=== PATIENT | female | born 1995 | race Caucasian/White ===

== ENCOUNTER 2018-08-03 08:15 | Inpatient (IN) | payer BC, OTHER ==
[~2018-08-03] VITALS: Ht 162.6 cm; Wt 43.1 kg
--- NOTE | 2018-08-03 10:38 | NUR ---
PREADMISSION Pt 23 y/o female received in intake office, came from home ( lives with 2 roommates). JF=292/62 P=103 R=16 T=98.0 O2=98%@RA. Pt appears intoxicated, observed nodding off at times during assessment. Pt alert and oriented to name, place, and time. Perrla. Skin warm and dry to touch. Cows ciwa deferred as pt denies symptoms besides lower back aches 5/10, and appears intoxicated at the moment. Pt presents disheveled with hair uncombed. Dirt under fingernails of both hands noted. Poor eye contact, appears guarded on approach. Explained unit rules with acknowledgment.
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
[2018-08-03] MEDS ORDERED: CLONIDINE HCL 0.1 MG TABLET PO PRN (11:30)
[2018-08-03] MEDS ORDERED: MIRALAX 17 GM POWD.PACK PO PRN (11:30)
[2018-08-03] MEDS ORDERED: ONDANSETRON ODT 4 MG TAB.RAPDIS SL PRN (11:30)
[2018-08-03] MEDS ORDERED: MAG HYDROX/AL HYDROX/SIMETH 30 ML LIQUID UDC PO PRN (11:30)
[2018-08-03] MEDS ORDERED: LOPERAMIDE HCL 2 MG CAPSULE PO PRN ×2 (11:30)
[2018-08-03] MEDS ORDERED: HYDROXYZINE PAMOATE 25 MG CAPSULE PO PRN (11:30)
[2018-08-03] MEDS ORDERED: diphenhydrAMINE 50 MG CAPSULE PO PRN (11:30)
[2018-08-03] MEDS ORDERED: ONDANSETRON 4 MG/2 ML VIAL IM PRN (11:30)
[2018-08-03] MEDS ORDERED: MAGNESIUM HYDROXIDE 30 ML LIQUID UDC PO PRN (11:30)
[2018-08-03] MEDS ORDERED: LORAZEPAM 1 MG TABLET PO PRN (11:30)
[2018-08-03 12:00] VITALS: BP 118/70
--- NOTE | 2018-08-03 12:00 | NUR ---
COWS CIWA ASSESSMENT cows=9 ciwa=6. Anxious and restless. Pressured speech. Bilateral hand tremors. Complaints of lower back aches 01/20. Fidgety. Complaints of generalized discomfort.
--- NOTE | 2018-08-03 12:00 | NUR ---
MD COMMUNICATION MD made aware of negative opiate UDS result and states it is okay to start subutex taper as ordered.
[2018-08-03 12:18] LABS: *URINE HCG, QUAL NEGATIVE (NEGATIVE)
[2018-08-03 12:25] LABS: *AMPHETAMINE, URINE NEGATIVE (NEGATIVE); *BARBITURATE, URINE NEGATIVE (NEGATIVE); *CANNABINOID, URINE POSITIVE (NEGATIVE); *COCCAINE, URINE POSITIVE (NEGATIVE); *OPIATE, URINE NEGATIVE (NEGATIVE); *PHENCYCLIDINE SCREEN,URINE NEGATIVE (NEGATIVE)
[2018-08-03] MEDS: METHOCARBAMOL 750 MG TABLET PO PRN ×2 (12:29→20:01)
[2018-08-03 12:33] LABS: BASOPHILS % (AUTO) 0.7 % (0.0-2.0); EOSINOPHILS % (AUTO) 0.3 % (0.0-7.0); HEMOGLOBIN 12.8 g/dL (10.9-14.3); LYMPHOCYTES # (AUTO) 1.1 K/uL (20.0-40.0); LYMPHOCYTES % (AUTO) 18.7 % (20.5-51.5); MEAN CORPUSCULAR HEMOGLOBIN 33.8 uug (24.7-32.8); MEAN CORPUSCULAR HGB CONC 35 g/dL (32.3-35.6); MEAN CORPUSCULAR VOLUME 97.9 fL (75.5-95.3); MONOCYTES # (AUTO) 0.4 K/uL (2.0-10.0); MONOCYTES % (AUTO) 7.2 % (0.0-11.0); NEUTROPHILS # (AUTO) 4.4 K/uL (1.8-8.9); NEUTROPHILS % (AUTO) 73.1 % (38.5-71.5); PLATELET COUNT (AUTO) 251 K/uL (179-408); RED BLOOD CELL COUNT(AUTO) 3.78 MIL/uL (3.63-4.92)
--- NOTE | 2018-08-03 12:40 | NUR ---
PRN ATIVAN ROBAXIN Pt anxious and restless. Fidgety. Frequent position change. Pressured speech. Irritable. Ativan 2mg po prn per MD order given. Complaints of back aches 03/22. Robaxin po prn per MD order given.
[2018-08-03 12:44] LABS: ETHANOL < 3 MG/DL (0-0)
[2018-08-03 12:48] LABS: ALANINE AMINOTRANSFERASE 24 U/L (14-59); ALKALINE PHOSPHATASE 68 U/L (50-136); ASPARTATE AMINOTRANSFERASE 21 U/L (15-37); BILIRUBIN,TOTAL 0.7 mg/dL (0.2-1.0); CARBON DIOXIDE 27 mmol/L (21-32); CHLORIDE 103 mmol/L (98-107); CREATININE 0.9 mg/dL (0.6-1.3); GLUCOSE 87 mg/dL (74-106); MAGNESIUM 2.1 mg/dL (1.8-2.4); POTASSIUM 3.2 mmol/L (3.5-5.1); TOTAL PROTEIN, SERUM 8.4 g/dL (6.4-8.2); UREA NITROGEN, BLOOD 7 mg/dL (7-18)
[2018-08-03 12:58] LABS: THYROID STIMULATING HORMONE 0.123 mIU/mL (0.358-3.740)
--- NOTE | 2018-08-03 13:40 | NUR ---
PRN ATIVAN ROBAXIN pt states aches 4/10. Pt states anxiety medication effective.
--- NOTE | 2018-08-03 13:40 | NUR ---
PRN ATIVAN ROBAXIN EVAL Pt states medications effective.
[2018-08-03] MEDS ORDERED: POTASSIUM CHLORIDE 20 MEQ TAB.PRT.SR PO ONE (14:00)
[2018-08-03 16:00] VITALS: BP 98/68
--- NOTE | 2018-08-03 16:00 | NUR ---
COWS CIWA ASSESSMENT cows12 ciwa=10. Anxious and restless. Perspiration on forehead noted. Fidgety. Lower back ache 8/10. Irritable and agitated. Stuffy nose. Pressured speech. Bilateral hand tremors noted.
[2018-08-03] MEDS: LORAZEPAM 1 MG TABLET PO SCH ×2 (17:31→20:01)
[2018-08-03] MEDS: BUPRENORPHINE HCL 2 MG TAB.SUBL SL SCH ×2 (17:31→20:01)
[2018-08-03] MEDS ORDERED: 4 DAY TAPER OF LORAZEPAM -SERENITY PROTOCOL PO PRN (18:00)
[2018-08-03] MEDS ORDERED: 4 DAY TAPER BUPRENORPHINE -SERENITY PROTOCOL SL SCH (18:00)
--- NOTE | 2018-08-03 19:09 | NUR ---
END OF SHIFT Pt 23 y/o female admitted for benzo and opiate withdrawal and cocaine and ketamine use. Pt alert and oriented to name, place, and time. Perrla. Skin warm and moist to touch. Respirations even and unlabored. Appear disheveled. hair uncombed. Dirt under fingernails noted. Encouraged to maintain hygiene. cows=12 ciwa=10 @1600. Anxious and restless. pressured speech. intermittent perspiration. Bilateral hand tremors. Body aches. isolative to room with no peer interaction. Did not attend group activity. Pt is on a 4 day subutex taper and is on day 1. pt is on a 4 day ativan taper and is on day1. Bed on lowest position with side rails up x2 up for safety. Call ligth within reach.
--- NOTE | 2018-08-03 19:31 | NUR ---
START OF SHIFT NOTE Rcvd report from outgoing nurse. Pt is a 23 y/o female A/O to person, place, time, and purpose. Pt was admitted for medically supervised withdrawal from Benzodiazepines and Opiates. Pt is on day 1 of a 4 day Subutex and Ativan taper. Pt has been presenting w/ depression, blunt affect, emotional labiality, drowsiness, sweats, chills, hot flashes, body aches, and unkempt and disheveled appearance. Pt rcvd PRN Ativan and Robaxin, both were noted effective by outgoing nurse. Last CIWA 10 and COWS 12 @ 1600. Call light is within reach. Pt will continue to be monitored and needs met.
[2018-08-03 20:00] VITALS: BP 110/58
--- NOTE | 2018-08-03 20:00 | NUR ---
CIWA AND COWS ASSESSMENT CIWA 10 and COWS 13. . Pt has been presenting w/ depression, blunt affect, emotional labiality, drowsiness, sweats, chills, hot flashes, body aches, and unkempt and disheveled appearance. V/S: T:98.7, P:84, RR:14, SPO2:98, BP:110/58.
--- NOTE | 2018-08-03 20:01 | NUR ---
PRN ROBAXIN AND ZOFRAN ADMINISTRATION Robaxin 750mg for body aches and back pain, and Zofran 4mg SL for nausea w/o emesis were given. Will reassess pt in 1 hr.
--- NOTE | 2018-08-03 21:01 | NUR ---
PRN ROBAXIN AND ZOFRAN REASSESSMENT Pt is in bed w/ her eyes closed. Pt's respirations are unlabored and even. Pt will continue to be monitored.
--- NOTE | 2018-08-03 21:55 | NUR ---
ENDORSEMENT Received patient lying in bed with eyes closed and even, unlabored respirations. HOB and bilateral side rails raised for safety. Patient is a 23 year old female admitted for medically supervised withdrawal from Benzos and opiates with secondary diagnoses of anxiety and depression. Patient appears disheveled and non-odorous. Will continue to monitor.
--- NOTE | 2018-08-04 | NUR ---
VITALS AND COWSCIWA DEFERRED Patient is noted lying in bed with eyes closed and even, unlabored respirations. HOB and bilateral side rails are raised. Vital signs refused and COWS/CIWA assessments deferred. Call light is within reach. Safety precautions maintained. Will continue to monitor.
--- NOTE | 2018-08-04 04:00 | NUR ---
VITALS AND COWS/CIWA DEFERRED Patient is noted lying in bed with eyes closed and even, unlabored respirations. HOB and bilateral side rails are raised. Vital signs refused and COWS/CIWA assessments deferred. Call light is within reach. Safety precautions maintained. Will continue to monitor.
--- NOTE | 2018-08-04 07:28 | NUR ---
END OF SHIFT Patient is noted lying in bed with eyes closed and even, unlabored respirations. Patient is a 23 year old female admitted for medically supervised withdrawal from Benzos and opiates with secondary diagnoses of anxiety and depression. Patient remained free of complications throughout the shift. Patient reported having body aches, back pain, and nausea for which Robaxin and Zofran were given with effectiveness. Patient was encouraged to increase activity levels and maintain adequate nutrition. Patient slept for about 8 hours during the night. Last COWS is 13 and last CIWA is 10. All safety measures are maintained. HOB and bilateral side rails raised. Call light is within reach. Endorsed to oncoming AM nurse.
[2018-08-04 08:00] VITALS: BP 104/60
--- NOTE | 2018-08-04 08:00 | NUR ---
START OF SHIFT COWS CIWA ASSESSMENT Pt 23 y/o female admitted for benzo and opiate withdrawal and cocaine and ketamine use. Pt received in room on bed with eyes closed, but arousable to name. Pt alert and oriented to name, place, and time. Perrla. Skin warm and moist to touch. Respirations even and unlabored. Appears disheveled. Empty drink bottles scattered throughout the room. Encouraged to maintain hygiene. Cows= ciwa= @0800. Anxious and restless. pressured speech. Intermittent perspiration/ chills. Bilateral hand tremors. Complaints of generalized body aches. Pt is on a 4 day subutex taper and is on day 2. pt is on a 4 day ativan taper and is on day 2. Bed on lowest position with side rails up x2 up for safety. Call light within reach. Addendum: 08/04/18 at 1602 by SOPHY DRAKE RN additional info cows=13 ciwa=10 @0800.
[2018-08-04] MEDS ORDERED: TUBERCULIN,PURIF.PROT.DERIV. 5 TU/0.1 ML TEST ID ONE (09:00)
[2018-08-04] MEDS ORDERED: BUPRENORPHINE HCL 2 MG TAB.SUBL SL SCH (09:00)
[2018-08-04] MEDS: LORAZEPAM 1 MG TABLET PO SCH ×3 (09:44→20:44)
[2018-08-04] MEDS: MULTIVITAMINS,THERAPEUTIC TABLET PO SCH (09:44)
[2018-08-04 10:06] LABS: HEPATITIS B SURFACE AG Negative (Negative)
[2018-08-04 12:00] VITALS: BP 110/64
--- NOTE | 2018-08-04 12:00 | NUR ---
COWS CIWA ASSESSMENT cows=13 ciwa=10. Bilateral hand tremors noted. Anxious and restless. Pressured speech. Complaints of body aches and generalized discomfort. Intermittent perspiration.
--- NOTE | 2018-08-04 12:00 | NUR ---
MD COMMUNICATION made aware of negative opiate UDS result and states it is okay to start subutex taper as ordered. Addendum: 08/04/18 at 1415 by SOPHY DRAKE RN incorrect date/time
[2018-08-04] MEDS: BUPRENORPHINE HCL 2 MG TAB.SUBL SL SCH ×2 (14:10→20:44)
[2018-08-04] MEDS: ACETAMINOPHEN 325 MG TABLET PO PRN (14:10)
[2018-08-04] MEDS: METHOCARBAMOL 750 MG TABLET PO PRN (14:11)
[2018-08-04] MEDS: IBUPROFEN 600 MG TABLET PO PRN (14:11)
--- NOTE | 2018-08-04 14:16 | NUR ---
PRN TYLENOL MOTRIN VISTARIL ROBAXIN Pt with complaints headache 4/10. Pt also with complaints of body aches 5/10. Robaxin po prn per MD order given. Tylenol po prn per MD order given. Motrin po prn per MD order given. Pt anxious and restless. Tearful. Vistaril po prn per MD order given.
--- NOTE | 2018-08-04 15:16 | NUR ---
PRN TYLENOL MOTRIN VISTARIL ROBAXIN EVAL Pt states medications effective.
[2018-08-04 16:00] VITALS: BP 102/64
--- NOTE | 2018-08-04 16:00 | NUR ---
COWS CIWA ASSESSMENT cows=13 ciwa=10. Anxious and restless. Tearful. Pressured speech. Bilateral hand tremors. Intermittent perspiration/ chills. Body aches. Complaints of generalized discomfort.
--- NOTE | 2018-08-04 18:19 | NUR ---
END OF SHIFT Pt 23 y/o female admitted for benzo and opiate withdrawal and cocaine and ketamine use. Pt alert and oriented to name, place, and time. Perrla. Skin warm and moist to touch. Respirations even and unlabored. Appears disheveled. Clothes scattered throughout the room. Encouraged to maintain hygiene. Cows= 13 ciwa=10 @1600. Anxious and restless. pressured speech. Intermittent perspiration/ chills. Bilateral hand tremors. Tearful episodes noted. Complaints of generalized lower back aches. Pt isolative to room with no peer interaction. Pt did not attend group activity. Pt is on a 4 day subutex taper and is on day 2. pt is on a 4 day ativan taper and is on day 2. Bed on lowest position with side rails up x2 up for safety. Call light within reach.
--- NOTE | 2018-08-04 19:30 | NUR ---
START OF SHIFT Received patient awake, alert, and oriented x4 watching television lying in bed. Patient is a 23 year old female admitted for medically supervised withdrawal from benzos and opiates with secondary diagnoses of anxiety and depression. Per endorsement patient was given Tylenol, motrin, Vistaril and Robaxin for headache, body aches, anxiety, and restlessness and PRN meds effective. Patient had a poor appetite during the day often only finishing about 25% of her meals. Patient was also noted to be tearful and crying in the AM shift regarding difficulties in her personal life. Upon assessment, patient reports having a headache at a 7 out of 10, but refuses pain medication stating I feel like Kadi been taking medications all day. I dont want t take anymore than I need to. Last COWS is 13 and CIWA is 10. All safety measures are in place. Call light is functional and within reach. Will continue to monitor.
--- NOTE | 2018-08-04 20:00 | NUR ---
COWS = 10, CIWA = 12 Patient is noted with a significant headache 7/10 pain, anxiety, fine tremors, and restlessness. Patient declines pain medication when offered stating I feel like Kadi been taking medications all day. Will continue to monitor closely.
[2018-08-04 20:14] VITALS: BP 96/43
--- NOTE | 2018-08-05 | NUR ---
VITALS AND COWS/CIWA DEFERRED Patient is noted lying in bed with eyes closed and even, unlabored respirations. HOB and bilateral side rails raised. Vital signs refused and COWS/CIWA assessment deferred. Call light functional and within reach. Bed is in a low and locked position. All safety measures in place. Will continue to monitor.
--- NOTE | 2018-08-05 07:15 | NUR ---
Start Of Shift Pt. is a 23 y/o female admitted for the medically managed withdrawal from Benzodiazepines, and Opiates. Pt. was also using ketamine, and cocaine concurrently with her other drug use. Pt. was placed on a 4 day Ativan, and 4 day Subutex tapers to manage withdrawal symptoms. Endorse from previous shift pt. presented with anxiety, depression and headache. Received pt. in room. Pt. in bed with eyes closed. No signs of distress noted. Safety measures in place. Will continue to monitor pt.'s behavior for safety.
--- NOTE | 2018-08-05 07:21 | NUR ---
END OF SHIFT Patient is a 23 year old female admitted for medically supervised withdrawal from benzos and opiates with secondary diagnoses of anxiety and depression. During the shift, patient reported a headache at a pain of 7 of 10, but declined pain meds upon offering. No PRNs were given during the NOC shift and patient stated I feel like Kadi been taking medications all day. I dont want to take anymore than I need to. Patient slept for about 9 hours in the night. Last COWS score is 10 and last CIWA is 12. All safety measures in place. Call light is functional and within reach. Bed is in a low locked position. Endorsed to oncoming AM nurse.
--- NOTE | 2018-08-05 08:00 | NUR ---
COWS/CIWA Assessment COWS of 9/CIWA of 9. Pt. in room presenting anxiety, restlessness, tremors, and diaphoresis. Will give medications as ordered. Will continue to monitor pt.'s behavior for safety and medication effectiveness.
[2018-08-05] MEDS: BUPRENORPHINE HCL 2 MG TAB.SUBL SL SCH ×3 (08:34→20:41)
[2018-08-05] MEDS: LORAZEPAM 1 MG TABLET PO SCH ×2 (08:34→20:41)
[2018-08-05] MEDS: MULTIVITAMINS,THERAPEUTIC TABLET PO SCH (08:34)
[2018-08-05 09:00] VITALS: BP 90/42
--- NOTE | 2018-08-05 10:18 | NUR ---
Therapist prompted client to attend group therapy sessions.
[2018-08-05 12:00] VITALS: BP 105/59
--- NOTE | 2018-08-05 12:00 | NUR ---
COWS/CIWA Assessment COWS of 9/CIWA of 9. Pt. in room presenting anxiety, restlessness, tremors, and diaphoresis. Pt. compliant with medication regiment and treatment plan. Will continue to monitor pt.'s behavior for safety and medication effectiveness.
[2018-08-05 16:00] VITALS: BP 106/62
[2018-08-05] MEDS: IBUPROFEN 600 MG TABLET PO PRN (17:31)
[2018-08-05] MEDS: ACETAMINOPHEN 325 MG TABLET PO PRN (17:31)
--- NOTE | 2018-08-05 17:31 | NUR ---
PRN Medication Pt. in room reporting a headache of 9/10. PRN Tylenol, and Motrin given at this time to manage withdrawal symptoms. Will continue to monitor pt.'s behavior for safety and medication effectiveness.
[2018-08-05] MEDS: METHOCARBAMOL 750 MG TABLET PO PRN (18:05)
--- NOTE | 2018-08-05 18:05 | NUR ---
PRN Medication/Re-Assessment Pt. in room and reports an improvement in her headache but that now her lower back hurts /10. PRN Robaxin given at this time to manage withdrawal symptoms. Will continue to monitor pt.'s behavior for safety and medication effectiveness.
--- NOTE | 2018-08-05 19:13 | NUR ---
End Of Shift Pt. is a 23 y/o female admitted for the medically managed withdrawal from Benzodiazepines, and Opiates. Pt. was also using ketamine, and cocaine concurrently with her other drug use. Pt. was placed on a 4 day Ativan, and 4 day Subutex tapers to manage withdrawal symptoms. Throughout shift pt. presented with anxiety, depression, low back pain and headache. Pt. compliant with medication regiment and treatment plan. Pt. able to verbalize needs. Safety measures in place. Will endorse pt.'s care to oncoming shift.
--- NOTE | 2018-08-05 19:43 | NUR ---
START OF SHIFT NOTE Rcvd report from outgoing nurse. Pt is a 23 y/o female A/O to person, place, time, and purpose. Pt was admitted for medically supervised withdrawal from ETOH, Benzodiazepines, and Opiates. Pt is on day 3 of a 4 day Subutex and Ativan taper. Pt has been presenting w/ body aches, abdominal cramping, chills, depressed and withdrawn mood, blunt affect, and anxiety. Pt rcvd PRN Robaxin, Motrin, and Tylenol and all were noted effective by outgoing nurse. Last CIWA 9 and COWS 9 @ 1600. Call light is within reach. Pt will continue to be monitored and needs met.
[2018-08-05 20:00] VITALS: BP 106/58
--- NOTE | 2018-08-05 20:00 | NUR ---
CIWA AND COWS ASSESSMENT CIWA 11 and COWS 10. Pt has been presenting w/ body aches, abdominal cramping, chills, depressed and withdrawn mood, blunt affect, and anxiety. V/S: T:98.1, P:81, RR:14, SPO2:98, BP:106/58.
[2018-08-05] MEDS: TRAZODONE 50 MG TABLET PO PRN (20:41)
--- NOTE | 2018-08-05 20:41 | NUR ---
PRN TRAZODONE ADMINISTRATION Trazodone 50mg given for insomnia. Will reassess pt in 1 hr.
--- NOTE | 2018-08-05 21:41 | NUR ---
PRN TRAZODONE REASSESSMENT Pt is in bed w/ her eyes closed. Pt states she is trying to fall asleep, but hasn't been able to. Pt will continue to attempt to sleep. Will continue to monitor pt.
--- NOTE | 2018-08-06 | NUR ---
CIWA AND COWS DEFERRED Pt is in bed w/ her eyes closed. Pt's respirations are unlabored and even.
--- NOTE | 2018-08-06 04:00 | NUR ---
CIWA AND COWS DEFERRED Pt is in bed w/ her eyes closed. Pt's respirations are unlabored and even.
--- NOTE | 2018-08-06 07:19 | NUR ---
END OF SHIFT NOTE Endorsed pt to oncoming nurse. Pt is a 23 y/o female A/O to person, place, time, and purpose. Pt was admitted for medically supervised withdrawal from ETOH, Benzodiazepines, and Opiates. Pt completed day 3 of a 4 day Subutex and Ativan taper. Pt continued presenting w/ body aches, abdominal cramping, chills, depressed and withdrawn mood, blunt affect, and anxiety. Pts chief complaint is low back pain that is achy and dull. Pt denies any S/I or H/I. PRN Trazodone was given and noted effective. Pts fluid intake was 355ml and she slept for 8hrs. Last CIWA 11 and COWS 10 @ 1999. Call light is within reach.
--- NOTE | 2018-08-06 07:30 | NUR ---
start of shift note: received pt from material handler 2nd shift nurse, pt is in stable condition at this time, pt is currently sleeping at this time, pt's last documented ciwa 11 and cows 10. will encourage pt to join activities and groups through out the shift. pt is tolerating taper well without A/R noted
[2018-08-06] MEDS ORDERED: CLON0.1T14 PO (08:08)
[2018-08-06] MEDS ORDERED: METH-406 PO (08:08)
[2018-08-06] MEDS ORDERED: HYDR-3895 PO (08:08)
[2018-08-06] MEDS ORDERED: TRAZ-213 PO (08:08)
[2018-08-06 09:00] VITALS: BP 112/65
[2018-08-06] MEDS ORDERED: LORAZEPAM 1 MG TABLET PO SCH (09:00)
[2018-08-06] MEDS ORDERED: BUPRENORPHINE HCL 2 MG TAB.SUBL SL SCH (09:00)
--- NOTE | 2018-08-06 09:00 | NUR ---
COWS 7: Pt with body aches, pt is labile and appears slightly anxious with flat affect
[2018-08-06] MEDS: MULTIVITAMINS,THERAPEUTIC TABLET PO SCH (09:11)
[2018-08-06] MEDS: METHOCARBAMOL 750 MG TABLET PO PRN (12:32)
--- NOTE | 2018-08-06 12:32 | NUR ---
PRN ADMINISTRATION: pt with complaints of body aches and pains, pain level 8/10 will administer Robaxin and monitor effectiveness of medication.
--- NOTE | 2018-08-06 13:00 | NUR ---
COWS/CIWA 7: pt with mild body aches and tearful easy/ moist eyes, slightly anxious at this time
[2018-08-06 14:11] VITALS: BP 111/66
[2018-08-06 17:27] VITALS: BP 110/88
--- NOTE | 2018-08-06 18:53 | NUR ---
end of shift note: cows 6 and 7, pt with complaints of on and off episodes of back pain, pt completed taper well without A/R noted.pt was admitted to [facility] for polysubustance withdrawal/dependence. pt will be discharging tomorrow.TB SKIN was read and was negative
--- NOTE | 2018-08-06 19:30 | NUR ---
START OF SHIFT Pt is a 23 y/o female admitted on 08/03/18 for benzo and opiate withdrawal. Pt finished a 4 day Ativan and 4 day Subutex taper and is scheduled to be d/c tomorrow. Last CIWA 6 and COWS 7 and PRN Robaxin administered during day shift. Upon assessment pt presents with anxiety, agitation, restlessness, flat affect, difficulty falling asleep, back pain 8/10, poor eye contact, and unkempt room. Safety measures in place. Call light within reach. Will continue to monitor.
[2018-08-06] MEDS: IBUPROFEN 600 MG TABLET PO PRN (19:57)
--- NOTE | 2018-08-06 19:57 | NUR ---
PRN MOTRIN ADMINISTRATION Pt reports back ache 03/22. Safety measures in place. Call light within reach. Will continue to monitor.
[2018-08-06 20:00] VITALS: BP 112/75
--- NOTE | 2018-08-06 20:00 | NUR ---
CIWA/COWS ASSESSMENT CIWA 9 and COWS 7. Pt presents with anxiety, agitation, restlessness, flat affect, difficulty falling asleep, back pain 8/10, poor eye contact, and unkempt room.
[2018-08-06] MEDS: TRAZODONE 50 MG TABLET PO PRN (20:41)
--- NOTE | 2018-08-06 20:41 | NUR ---
PRN TRAZODONE ADMINISTRATION Pt requests sleep aid. Safety measures in place. Call light within reach. Will continue to monitor.
--- NOTE | 2018-08-06 20:57 | NUR ---
PRN MOTRIN REASSESSMENT Pt reports back pain reduced to tolerable level. Safety measures in place. Call light within reach. Will continue to monitor.
--- NOTE | 2018-08-06 21:41 | NUR ---
PRN TRAZODONE REASSESSMENT Pt laying in bed with eyes closed, medication noted effective. Safety measures in place. Call light within reach. Will continue to monitor.
--- NOTE | 2018-08-07 | NUR ---
CIWA/COWS DEFERRED AND VITALS REFUSED Pt laying in bed with eyes closed, CIWA/COWS deferred, to be assessed when pt is awake per orders. Vitals refused. Respirations even and unlabored. Safety measures in place. Call light within reach. Will continue to monitor.
--- NOTE | 2018-08-07 07:06 | NUR ---
END OF SHIFT Pt is a 23 y/o female admitted on 08/03/18 for benzo and opiate withdrawal. Pt finished a 4 day Ativan and 4 day Subutex taper and is scheduled to be d/c today. Pt presented with anxiety, agitation, restlessness, flat affect, difficulty falling asleep, back pain 8/10, poor eye contact, and unkempt room. PRN Motrin and Trazodone administered, which were effective. Last COWS 7 and CIWA 9. Pt slept 9 hours. Intake 700 ml, void x 1, stool x 0. Safety measures in place. Call light within reach. Pts needs have been met. Endorsed to day shift nurse.
--- NOTE | 2018-08-07 07:34 | NUR ---
BEGINNING OF SHIFT Patient endorsement report received from manager shift nurse, all pertinent information was discussed. Patient is scheduled to be discharged this morning, as per manager shift patient received PRN: Trazodone, and Motrin, slept for 9 hours. Patient with last COW score of: 7, and CIWA score of: 9. Patient received awake, alert and oriented x4, educated regarding plan of care for the day and medication regimen, with good verbal understanding. Safety measurers are in place. call light kept with in reach, will continue to monitor.
[2018-08-07 08:06] VITALS: BP 102/68
[2018-08-07] MEDS: MULTIVITAMINS,THERAPEUTIC TABLET PO SCH (08:53)
--- NOTE | 2018-08-07 09:25 | NUR ---
DISCHARGE Patient discharged off the unit in stable condition at 0925, prior to discharge patient was provided with education and teaching regarding all discharge instructions with good verbal understanding. Patient vital signs WNL. Last COW score of: 4, and CIWA score of: 5. Scheduled morning medication administered as ordered. no PRNs were given. Patient noted self motivated towards sobriety. Patient did not bring any home medications. Prescriptions and discharged instructions were placed in patients personal duffel bag. Patient off the uni in stable condition and in no apparent acute distress at 0925.
== END 2018-08-07 09:25 | disposition other institution (70) | DRG 895 ==
LOC: SRC 09:29
PROVIDERS: ADMIT Internal Medicine Addiction Medicine; ATTEND Internal Medicine Addiction Medicine
PROC: HZ2ZZZZ Detoxification Services for Substance Abuse Treatment (ICD-10-PCS; principal; 2018-08-03)
PROC: HZ31ZZZ Individual Counseling for Substance Abuse Treatment, Behavioral (ICD-10-PCS; 2018-08-05)
PROC: HZ41ZZZ Group Counseling for Substance Abuse Treatment, Behavioral (ICD-10-PCS; 2018-08-05)
DX: F11.23 Opioid dependence with withdrawal (principal); Z91.5 Personal history of self-harm; F32.9 Major depressive disorder, single episode, unspecified; F14.10 Cocaine abuse, uncomplicated; F13.230 Sedative, hypnotic or anxiolytic dependence with withdrawal, uncomplicated; G47.00 Insomnia, unspecified; F12.90 Cannabis use, unspecified, uncomplicated
CPT/HCPCS: 36415; 80307; 80346; 80349; 80353; 83735; 84443; 84703; 85025; 86580; 86592; 86705; 86803; 87340; 87806; A4663; G0480; Q0162